=== PATIENT | male | born 1950 | race Caucasian/White ===

== ENCOUNTER 2017-04-09 12:56 | Emergency (ER) | payer OTHER ==
[~2017-04-09] VITALS: Ht 182.9 cm; Wt 110.6 kg
[2017-04-09 13:03] VITALS: TEMP 36.4; Ht 182.9 cm; Wt 110.6 kg
[2017-04-09 13:18] VITALS: O2SAT 97
[2017-04-09] MEDS ORDERED: ASPI-435 PO (13:38)
[2017-04-09] MEDS ORDERED: SODIUM CHLORIDE 0.9% 500ML 500 ML IV STA (13:47)
--- NOTE | 2017-04-09 13:53 | EMERGENCY ROOM VISIT NOTE ---
History Report prepared by Maureen: Megan Vleasquez Under the Supervision of: Dr. Ty Oakley M.D. First contact with patient: 13:43 Chief Complaint: TACHYCARDIA Stated Complaint: HEART RATE OF 150- IRREGULAR SOB Nursing Triage Summary: SOB. Past hx of a fib in the past. History of Present Illness The patient is a 66 year old male who presents to the Emergency Room with complaints of intermittent tachycardia for the past several weeks. He admits to a history of atrial fibrillation for which he takes a daily Baby Aspirin. Although Afib never formally diagnosed. He denies any history of heart failure of previous CVA's. His reports she is an RN and first noticed his irregular heart rate. The patient reports he has also experienced intermittent shortness of breath, which he at first thought was from a 25 pound weight gain in the past year. Exertion worsens the shortness of breath. His states the patient was drinking "2 or 3 beers, 6 days a week". He reports he now drinks "a couple times a week" and is actively trying to lose weight. 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 He denies any recent fevers, chills, cough, congestion, nausea, vomiting or urinary symptoms. The patient states he takes no other daily medications besides the Aspirin. Source of History: patient, spouse/significant other () Onset: past several weeks Position: chest Timing: intermittent Associated Symptoms: + SOB, No fevers, No cough (or congestion), No nausea, No vomiting, No urinary symptoms Review of Systems See HPI for pertinent positives and negatives. A total of ten systems were reviewed and were otherwise negative. Past Medical & Surgical Medical Problems: (1) Atrial fibrillation Social History Smoking Status: Never Smoker Alcohol Use: occasionally Drug Use: none Marital Status: Housing Status: lives with family Occupation Status: employed Current/Historical Medications Scheduled Aspirin (Aspirin 81), 81 MG PO QAM Furosemide (Lasix), 1 TAB PO DAILY Metoprolol Tartrate (Lopressor) (Lopressor), 1 TAB PO BID Allergies Coded Allergies: No Known Allergies (Unverified , 04/09/17) Physical Exam Vital Signs Date Time Temp Pulse Resp B/P (MAP) Pulse Ox O2 Delivery O2 Flow Rate FiO2 04/09/17 22:56 128 18 146/100 Room Air 04/09/17 21:40 118 10/8/17 21:25 120 95 Room Air 04/09/17 20:30 106 20 133/89 94 Room Air 04/09/17 20:00 124 18 136/105 95 Room Air 04/09/17 18:33 90 18 133/99 97 Room Air 04/09/17 18:16 117 18 125/97 95 Room Air 04/09/17 18:14 118 16 142/115 96 Room Air 04/09/17 18:12 156 18 141/118 96 Room Air 04/09/17 17:15 116 04/09/17 16:42 116 14 120/99 97 Room Air 04/09/17 15:58 118 20 125/96 96 Room Air 04/09/17 15:30 102 19 123/94 96 Room Air 04/09/17 15:16 114 14 133/113 94 Room Air 04/09/17 15:11 127 130/108 04/09/17 15:00 127 19 133/104 96 Room Air 04/09/17 14:17 117 14 130/108 95 Room Air 04/09/17 14:00 127 15 134/105 96 Room Air 04/09/17 13:18 97 Room Air 04/09/17 13:14 95 Room Air 04/09/17 13:13 135 18 151/113 96 Room Air 04/09/17 13:13 134 04/09/17 13:03 36.4 129 22 141/96 95 Room Air Physical Exam GENERAL: Awake, alert, well-appearing, in no distress. Dry mucous membranes HENT: Normocephalic, atraumatic. Oropharynx unremarkable. EYES: Normal conjunctiva. Sclera non-icteric. NECK: Supple. No nuchal rigidity. FROM. No JVD. RESPIRATORY: Clear to auscultation. CARDIAC: Irregularly irregular, tachycardic. Extremities warm and well perfused. Pulses equal. ABDOMEN: Soft, non-distended. No tenderness to palpation. No rebound or guarding. No masses. RECTAL: Deferred. MUSCULOSKELETAL: Chest examination reveals no tenderness. The back is symmetrical on inspection without obvious abnormality. There is no CVA tenderness to palpation. No joint edema. LOWER EXTREMITIES: Calves are equal size bilaterally and non-tender. Scant BLE edema. No discoloration. NEURO: Normal sensorium. No sensory or motor deficits noted. SKIN: No rash or jaundice noted. Medical Decision & Procedures ER Provider Diagnostic Interpretation: Radiology results as stated below per my review and radiologist interpretation: CHEST ONE VIEW PORTABLE CLINICAL HISTORY: 66 years-old Male presenting with CHEST PAIN. TECHNIQUE: Portable upright AP view of the chest was obtained. COMPARISON: None. FINDINGS: Atherosclerosis of aortic arch. Cardiac silhouette mildly enlarged. Prominence of pulmonary vasculature. Lungs and pleural spaces clear. Osseous structures normal. Upper abdomen normal. IMPRESSION: 1. Mild cardiomegaly with volume overload. No noel pulmonary edema. Electronically signed by: Telly Mathias M.D. 04/09/2017 4:11 PM Laboratory Results 04/09/17 13:51 Red Blood Count 5.01, Mean Corpuscular Volume 94.6, Mean Corpuscular Hemoglobin 30.7, Mean Corpuscular Hemoglobin Concent 32.5, Mean Platelet Volume 9.9, Neutrophils (%) (Auto) 56.6, Lymphocytes (%) (Auto) 31.8, Monocytes (%) (Auto) 10.7, Eosinophils (%) (Auto) 0.5, Basophils (%) (Auto) 0.3, Neutrophils # (Auto ) 4.24, Lymphocytes # (Auto) 2.38, Monocytes # (Auto) 0.80, Eosinophils # (Auto ) 0.04, Basophils # (Auto) 0.02 04/09/17 13:51 Test 04/09/17 13:27 04/09/17 13:51 04/09/17 22:10 Bedside Troponin I < 0.030 ng/ml (0-0.045) White Blood Count 7.49 K/uL (4.8-10.8) Red Blood Count 5.01 M/uL (4.7-6.1) Hemoglobin 15.4 g/dL (14.0-18.0) Hematocrit 47.4 % (42-52) Mean Corpuscular Volume 94.6 fL (80-100) Mean Corpuscular Hemoglobin 30.7 pg (25-34) Mean Corpuscular Hemoglobin Concent 32.5 g/dl (32-36) Platelet Count 213 K/uL (130-400) Mean Platelet Volume 9.9 fL (7.4-10.4) Neutrophils (%) (Auto) 56.6 % Lymphocytes (%) (Auto) 31.8 % Monocytes (%) (Auto) 10.7 % Eosinophils (%) (Auto) 0.5 % Basophils (%) (Auto) 0.3 % Neutrophils # (Auto) 4.24 K/uL (1.4-6.5) Lymphocytes # (Auto) 2.38 K/uL (1.2-3.4) Monocytes # (Auto) 0.80 K/uL (0.11-0.59) Eosinophils # (Auto) 0.04 K/uL (0-0.5) Basophils # (Auto) 0.02 K/uL (0-0.2) RDW Standard Deviation 46.0 fL (36.4-46.3) RDW Coefficient of Variation 13.4 % (11.5-14.5) Immature Granulocyte % (Auto) 0.1 % Immature Granulocyte # (Auto) 0.01 K/uL (0.00-0.02) Anion Gap 9.0 mmol/L (3-11) Est Creatinine Clear Calc Drug Dose 79.9 ml/min Estimated GFR () 73.6 Estimated GFR (Non- 63.5 BUN/Creatinine Ratio 15.9 (10-20) Calcium Level 9.4 mg/dl (8.5-10.1) Total Bilirubin 0.6 mg/dl (0.2-1) Direct Bilirubin 0.4 mg/dl (0-0.2) Aspartate Amino Transf (AST/SGOT) 56 U/L (15-37) Alanine Aminotransferase (ALT/SGPT) 75 U/L (12-78) Alkaline Phosphatase 59 U/L (45-117) Pro-B-Type Natriuretic Peptide 3351 pg/ml (0-900) Total Protein 7.2 gm/dl (6.4-8.2) Albumin 3.7 gm/dl (3.4-5.0) Lipase 236 U/L (73-393) Thyroid Stimulating Hormone (TSH) 7.020 uIu/ml (0.300-4.500) Laboratory results reviewed by me Medications Administered Medications (Trade) Dose Ordered Sig/Calvin Route Start Time Stop Time Status Last Admin Dose Admin Sodium Chloride 500 ml @ 999 mls/hr Q31M STAT IV 04/09/17 13:47 04/09/17 14:17 DC 04/09/17 13:47 999 MLS/HR Diltiazem HCl (Cardizem Inj) 25 mg STK-MED ONCE .ROUTE 04/09/17 14:55 04/09/17 14:56 DC 04/09/17 15:08 15 MG Diltiazem HCl (Cardizem Tab) 30 mg NOW ONCE PO 04/09/17 16:45 04/09/17 16:46 DC 04/09/17 16:42 30 MG Furosemide (Lasix Inj) 20 mg NOW STAT IV 04/09/17 17:31 04/09/17 17:33 DC 04/09/17 18:10 20 MG Diltiazem HCl (Cardizem Inj) 25 mg STK-MED ONCE .ROUTE 04/09/17 18:05 04/09/17 18:06 DC 04/09/17 18:11 15 MG Diltiazem HCl (Cardizem Inj) 20 mg NOW STAT IV 04/09/17 19:51 04/09/17 19:52 DC 04/09/17 20:04 20 MG Metoprolol Tartrate (Lopressor Tab) 25 mg NOW STAT PO 04/09/17 22:24 04/09/17 22:26 DC 04/09/17 22:55 25 MG ECG Indication: tachycardia Rate (beats per minute): 134 Rhythm: atrial fibrillation Findings: RBBB (Incomplete), no acute ischemic change, other (Normal axis) ED Course 1346: The patient was evaluated in room C7. A complete history and physical exam was performed. 1347: Sodium Chloride 500 ml @ 999 mls/hr IV 1448: Cardizem Bolus / Drip 15ea IV 1455: Cardizem Inj 25mg IV 1500: Diltiazem HCl 125 mg/Dextrose 125ml @ 5mls/hr Protocol IV 1620: I reevaluated the patient. He is averaging around 100 to 110s in HR. Every now and then he will spike to 130s. He will administer oral Diltiazem. I recommended he remain in the hospital for further evaluation and management but he declines currently and states he will wait to talk to his . 1645: Cardizem Tab 30mg PO 1731: Cardizem Bolus / Drip 15 ea IV, Lasix Inj 20mg IV 1745: I reevaluated the patient. His heart rate is still up. His asked if he could be discharged home on medication for rate control, and I discussed with her my concerns about sending him home before his heart rate has been controlled. We will give him Diltiazem and do an ambulation trial. If he becomes hypoxic during the ambulation trial, he and his and agreeable to remaining in the hospital for further evaluation. 1804: Diltiazem 25 mg IV. 1950: Diltiazem 20 mg IV. Medical Decision I reviewed the patient's past medical history, medications, and the nursing notes as described above. The patient's presentation and history were concerning for paroxysmal atrial fibrillation, dehydration, electrolyte imbalance, pneumonia, bronchitis, CHF, ACS. The patient is a 66-year-old gentleman with 2 months of dyspnea on exertion with intermittent episodes of irregular heartbeat who presents emergency Department with worsening dyspnea on exertion and irregular heartbeat in the 140s at home per history of present illness. While the patient is no acute distress denies any palpitations or shortness of breath at rest, heart rate is in A. fib with RVR, 140s. Exam the patient appears clinically dry, no significant JVD. Labs notable for BNP to 3000s. Chest x-ray shows venous congestion consistent with fluid overload. EKG shows A. fib with RVR without any signs of acute ischemia. Troponin negative in the setting of weeks of symptoms. Patient was given 500 mL bolus on arrival based on his clinically dry appearance. However upon review of chest x-ray he was given 15 of IV diltiazem marginal improvement in heart rate to the 100-110s. Then given oral dilt with heart rate still ranging from 110s-120s. 15 mg of IV diltiazem repeated with 20 of Lasix and subsequent 2000 cc UOP with brief improvement to 90s however then returned to 120-140s. During this time the patient continued to be asymptomatic and is requesting discharge. I have advised the patient against this approach however he was persistent about leaving AMA. We agreed would attempt one more try for rate control and was given 20 of IV Dilt and was subsequently in the 90-100s heart rate. I discussed with the patient one final step to ensure his safety despite his leaving AMA would be to have a successful ambulatory trial with pulse ox. Upon mandatory trial with pulse ox the patient did have some dyspnea but was 95% on room air with heart rate in the 90s to 110s. Subsequently at rest the patient did return to the 120s 130s. Bedside echo was done at this time which was limited in the setting of the patient's RVR however MAPSE 9mm each could suggest mildly reduced intrinsic LV function but could also be rate related. Again I explained to the patient the importance of being admitted for further evaluation and monitoring. The patient and his expressed concern about being self-pay at this time were persistent that they preferred discharge and understood this would be AGAINST MEDICAL ADVICE. I explained that this was at the risk of a worse condition, disability and . They both expressed understanding of this. Thus we agreed we would attempt to optimize their management to reduce the risk of any worsening condition until they could be seen outpatient. I discussed the case with cardiology, Dr. Sheth, who agreed that that the patient should be admitted. However, to minimize risk of worsening symptoms/condition recommends metoprolol tartrate 25 mg twice a day and Lasix 20 mg daily. Agrees that further IV treatment likely not necessary given short duration of effect and given the patient is leaving, oral medication sufficient at this time. Additionally they will be able to see the patient tomorrow in clinic for further evaluation. Family was updated about this plan. At this point, patient requesting to leave urgently and refused to have second troponin drawn. Thus, the patient was given home packs of metoprolol and Lasix as well as prescription and instructions for follow-up tomorrow. Findings and plan for follow-up with cardiology reviewed with patient. Patient and agreeable and d/c'd AMA per discharge instructions. Medication Reconcilliation Current Medication List: was personally reviewed by me Blood Pressure Screening Patient's blood pressure: Normal blood pressure Blood pressure disposition: Did not require urgent referral Impression Primary Impression: Atrial fibrillation with RVR Additional Impression: Congestive heart failure (CHF) Critical Care I have personally spent greater than 40 minutes of critical care time in the direct management of this patient. This includes bedside care, interpretation of diagnostic studies, and testing, discussion with consultants, patient, and family members, and other required patient management activities. This 40 minutes is in excess of all separately billable procedures. Scribe Attestation The scribe's documentation has been prepared under my direction and personally reviewed by me in its entirety. I confirm that the note above accurately reflects all work, treatment, procedures, and medical decision making performed by me. Departure Information Dispostion Against Medical Advice Prescriptions Furosemide (LASIX) 20 Mg Tab 1 TAB PO DAILY for 14 Days, #14 TAB 0 Refills Prov: Ty Oakley M.D. 04/09/17 Metoprolol Tartrate (Lopressor) (Lopressor) 25 Mg Tab 1 TAB PO BID for 14 Days, #28 TAB 0 Refills Prov: yT Oakley M.D. 04/09/17 Referrals Mark Sheth MD Patient Instructions Atrial Fibrillation Dc, Congestive Heart Failure [facility], [facility] [place] [facility]- [facility], [facility] Additional Instructions Please follow up with cardiology, Dr. Sheth, tomorrow for re-evaluation and management. You were found to have new atrial fibrillation and possibly congestive heart failure. We recommended admission to the hospital given the difficulty in controlling your heart rate and question of worsening heart function. However, you did not want to be admitted and preferred to be discharged AGAINST MEDICAL ADVICE. Please note, by leaving AGAINST MEDICAL ADVICE you risk a worse condition, disability, and . However, we're open 24 hours a day and 7 days a week if you were to change your mind or have any worsening symptoms and should not hesitate to return. Take metoprolol twice daily as prescribed. Take Lasix once daily as prescribed. Continue your baby aspirin daily. Return to the emergency department for worsening symptoms as described in the accompanying instructions. Problem Qualifiers
[2017-04-09 14:03] LABS: BASO % 0.3 %; BASO ABS # 0.02 K/uL (0-0.2); COMPLETE YES; EOS % 0.5 %; HEMATOCRIT 47.4 % (42-52); IG% 0.1 %; LYMPH % 31.8 %; LYMPH ABS # 2.38 K/uL (1.2-3.4); MEAN CELL VOLUME 94.6 fL (80-100); MEAN CORPUSCULAR HEMOGLOBIN 30.7 pg (25-34); MEAN CORPUSCULAR HGB CONC 32.5 g/dl (32-36); MEAN PLATELET VOLUME 9.9 fL (7.4-10.4); MONO % 10.7 %; NEUT % 56.6 %; PLATELET COUNT 213 K/uL (130-400); RED BLOOD COUNT 5.01 M/uL (4.7-6.1); WHITE BLOOD COUNT 7.49 K/uL (4.8-10.8)
[2017-04-09 14:20] LABS: ALT/SGPT 75 U/L (12-78); AST/SGOT 56 U/L (15-37); BLOOD UREA NITROGEN 19 mg/dl (7-18); BUN/CREATININE RATIO 15.9 (10-20); CALCIUM 9.4 mg/dl (8.5-10.1); CARBON DIOXIDE 26 mmol/L (21-32); CHLORIDE 105 mmol/L (98-107); GLUCOSE 107 mg/dl (70-99); POTASSIUM 4.1 mmol/L (3.5-5.1); SODIUM 140 mmol/L (136-145)
[2017-04-09 14:31] LABS: ALKALINE PHOSPHATASE 59 U/L (45-117)
[2017-04-09] MEDS ORDERED: DILTIAZEM BOLUS / DRIP IV STA ×2 (14:48→17:31)
[2017-04-09] MEDS ORDERED: DILTIAZEM HCL 5 MG/ML 5 ML VIAL ONE ×2 (14:55→18:05)
[2017-04-09] MEDS ORDERED: DILTIAZEM HCL INJ 125 MG in DEXTROSE 5% 100ML IV PRN (15:00)
--- NOTE | 2017-04-09 16:12 | DIAGNOSTIC IMAGING REPORT ---
CHEST ONE VIEW PORTABLE CLINICAL HISTORY: 66 years-old Male presenting with CHEST PAIN. TECHNIQUE: Portable upright AP view of the chest was obtained. COMPARISON: None. FINDINGS: Atherosclerosis of aortic arch. Cardiac silhouette mildly enlarged. Prominence of pulmonary vasculature. Lungs and pleural spaces clear. Osseous structures normal. Upper abdomen normal. IMPRESSION: 1. Mild cardiomegaly with volume overload. No noel pulmonary edema. Electronically signed by: Telly Mathias M.D. 04/09/2017 4:11 PM Dictated Date/Time: 04/09/2017 4:09 PM
[2017-04-09] MEDS ORDERED: DILTIAZEM HCL 30 MG TAB PO ONE (16:45)
[2017-04-09] MEDS ORDERED: FUROSEMIDE 40 MG/4 ML VIAL IV STA (17:31)
[2017-04-09] MEDS ORDERED: DILTIAZEM HCL 5 MG/ML 5 ML VIAL IV STA (19:51)
[2017-04-09 21:25] VITALS: O2SAT 95
[2017-04-09] MEDS ORDERED: METOPROLOL TARTRATE 25 MG TAB PO STA (22:24)
[2017-04-09] MEDS ORDERED: FUROSEMIDE 20 MG TAB PO STA (22:44)
[2017-04-09] MEDS ORDERED: METOPROLOL TARTRATE 50 MG TAB PO STA (22:44)
[2017-04-09] MEDS ORDERED: FURO20TA PO (22:55)
[2017-04-09] MEDS ORDERED: METO25TA56 PO (22:55)
[2017-04-09 22:56] VITALS: BP 146/100; PULSE 128
== END 2017-04-09 23:19 | disposition left against medical advice (07) ==
LOC: C.EDB 12:57 → C.EDC 23:19
DX: I48.91 Unspecified atrial fibrillation (principal); I50.9 Heart failure, unspecified; I45.10 Unspecified right bundle-branch block

== ENCOUNTER → 2017-07-11 | Outpatient (CLI) | payer OTHER ==
[~2017-07-11] MED LIST: APIX1TAB3 PO; DILT120C PO; FURO20TA PO
[2017-07-11 17:53] LABS: HEMATOCRIT 43.4 % (42-52); HEMOGLOBIN 14.3 g/dL (14.0-18.0); MEAN CELL VOLUME 92.1 fL (80-100); MEAN CORPUSCULAR HEMOGLOBIN 30.4 pg (25-34); MEAN CORPUSCULAR HGB CONC 32.9 g/dl (32-36); MEAN PLATELET VOLUME 9.8 fL (7.4-10.4); PLATELET COUNT 240 K/uL (130-400); RED CELL DISTRIBUTION WIDTH CV 15.3 % (11.5-14.5); RED CELL DISTRIBUTION WIDTH SD 51.5 fL (36.4-46.3); WHITE BLOOD COUNT 8.02 K/uL (4.8-10.8)
[2017-07-11 18:14] LABS: ALBUMIN 3.5 gm/dl (3.4-5.0); ALT/SGPT 48 U/L (12-78); AST/SGOT 33 U/L (15-37); BLOOD UREA NITROGEN 22 mg/dl (7-18); CALCIUM 9.2 mg/dl (8.5-10.1); CARBON DIOXIDE 27 mmol/L (21-32); GLUCOSE 84 mg/dl (70-99); POTASSIUM 4.4 mmol/L (3.5-5.1); SODIUM 140 mmol/L (136-145)
[2017-07-11 18:24] LABS: ALKALINE PHOSPHATASE 61 U/L (45-117); TOTAL PROTEIN 6.9 gm/dl (6.4-8.2)
== END | disposition home or self-care (01) ==
LOC: C.LAB1850 16:19
PROVIDERS: ATTEND Internal Medicine Clinical Cardiac Electrophysiology
DX: I48.0 Paroxysmal atrial fibrillation (principal)

== ENCOUNTER → 2017-07-21 | Day surgery (SDC) | payer OTHER ==
[~2017-07-21] VITALS: Ht 182.9 cm; Wt 100.0 kg
[~2017-07-21] MED LIST changes: +AMIO200T4 PO; +LIDOCAINE HCL 2% 2 ML VIAL (20MG/ML) ONE; +PROPOFOL IV EMULSION 10 MG/ML 20 ML VIAL IV ONE
[2017-07-21 06:55] VITALS: BP 116/88; PULSE 114; TEMP 36.5; O2SAT 99; Ht 182.9 cm; Wt 100.0 kg
--- NOTE | 2017-07-21 07:22 | History & Physical Bridge Note ---
H&P Re-Evaluation Bridge Note: I have examined the patient, reviewed the History & Physical and in the interval since the performance of the History & Physical I have noted the following changes of clinical significance: Still in AF. On appropriate anticoagulation. No changes noted
--- NOTE | 2017-07-21 07:23 | Discharge Instructions ---
Discharge Instructions Procedure Procedure Date: Jul 21, 2017. Reason for Visit: W/Anesthesia *Domenic* Sweetie Fib. Discharge Discharge Date: Jul 21, 2017. Discharge Diagnosis: AF Last Recorded Wt (Kilograms): 100 Anesthesia Post Anesthesia Instructions: If you have had General Anesthesia or IV Sedation: * Do not drive today. * Resume driving when surgeon permits. * Do not make important decisions or sign legal documents today. * Call surgeon for: 1. Temperature elevations greater than 101 degrees F. 2. Uncontrollable pain. 3. Excessive bleeding. 4. Persistent nausea and vomiting. 5. Medication intolerance (nausea, vomiting or rash). * For nausea and vomiting use only clear liquids such as: tea, soda, bouillon until nausea subsides, then gradually increase diet as tolerated. * If you have any concerns or questions, call your surgeon's office. If physician is unavailable and it is an emergency, call 911 or go to the nearest emergency room. Instructions Activity Recommendations: driving or machine use limit Return to School/Work: with no limitations Recommended Home Diet: resume previous diet Allergies: Coded Allergies: No Known Allergies (Unverified , 04/09/17) Provider Instructions No driving for 24 hours Follow Up Rafael Juarezy Recommendations: Call your doctor if: * Temperature above 101 degrees * Pain not relieved by pain medicine ordered * There is increased drainage or redness from any incision * You have any unanswered questions or concerns. Your Doctors Instructions noted above were prepared by provider Maximino Sheth. Patient Signature Section: Patient Instructions Signature Page Marcelino May Patient (or Guardian) Signature/Date: I have read and understand the instructions given to me by my caregivers. Caregiver/RN/Doctor Signature/Date: The above-named patient and/or guardian has received patient instructions on this date. + Original Patient Signature Page (only) stays with chart. Please make copy for patient.
[2017-07-21 07:29] VITALS: BP 119/97; PULSE 104; O2SAT 95
[2017-07-21 07:30] VITALS: BP 95/71; PULSE 76; O2SAT 95
[2017-07-21 07:33] VITALS: BP 90/68; PULSE 76; O2SAT 95
--- NOTE | 2017-07-21 07:34 | Procedure Note ---
Procedure Note Date of Service Jul 21, 2017. Procedure Note Procedure performed: Cardioversion Indication: Atrial fibrillation Staff embedded software test engineer: Mark Sheth MD Procedure in detail: The patient was informed of the risks benefits and alternatives to the intended procedure. He understood such which proceed. He was taken to the cardiac catheterization suite holding area. A general anesthetic was administered by the Anesthesiology Service. Once appropriately anesthetized, the patient was cardioverted using 200 joules delivered in a biphasic fashion. This returned the patient to sinus rhythm. The patient tolerated procedure well, there were no immediate complications. Patient was neurologically intact subsequent to the procedure. Impression: Successful cardioversion from atrial fibrillation to normal sinus rhythm
[2017-07-21 07:35] VITALS: BP 96/72; PULSE 76; O2SAT 95
[2017-07-21 08:10] VITALS: BP 100/78; PULSE 74; O2SAT 97
--- NOTE | 2017-07-21 08:11 | Anesthesiology Progress Note ---
Anesthesia Post Op Note Date & Time Jul 21, 2017 at 08:11 Vital Signs Vital Signs Past 12 Hours Date Time Temp Pulse Resp B/P (MAP) Pulse Ox O2 Delivery O2 Flow Rate FiO2 07/21/17 07:56 74 16 101/70 (80) 97 Room Air 07/21/17 07:51 74 16 97/73 (81) 97 Room Air 07/21/17 07:46 72 16 95/58 (70) 97 Room Air 07/21/17 07:41 72 16 79/56 (64) 97 Room Air 07/21/17 07:36 72 16 84/57 (66) 97 Room Air 07/21/17 07:35 76 16 96/72 95 Nasal Cannula 4 07/21/17 07:33 76 16 90/68 95 Nasal Cannula 4 07/21/17 07:30 76 16 95/71 95 Nasal Cannula 4 07/21/17 07:29 104 16 119/97 95 Nasal Cannula 4 07/21/17 06:55 36.5 114 16 116/88 (97) 99 Room Air Notes Mental Status: alert / awake / arousable, participated in evaluation Pt Amnestic to Procedure: Yes Nausea / Vomiting: adequately controlled Pain: adequately controlled Airway Patency, RR, SpO2: stable & adequate BP & HR: stable & adequate Hydration State: stable & adequate Anesthetic Complications: no major complications apparent
== END | disposition home or self-care (01) ==
LOC: C.CATH 06:38
PROVIDERS: ATTEND Internal Medicine Clinical Cardiac Electrophysiology
DX: I48.0 Paroxysmal atrial fibrillation (principal); I42.9 Cardiomyopathy, unspecified; I50.9 Heart failure, unspecified; Z87.891 Personal history of nicotine dependence; Z79.01 Long term (current) use of anticoagulants; Z79.899 Other long term (current) drug therapy